=== PATIENT | male | born 1940 | race Caucasian/White ===

== ENCOUNTER 2022-04-07 16:45 | Emergency (ER) | payer MEDICARE, OTHER ==
[2022-04-07] MEDS ORDERED: oxyCODONE 5 MG/5 ML Cup PO ONE (21:09)
[2022-04-07] MEDS ORDERED: Acetaminophen 500 MG Tab PO ONE (21:10)
[2022-04-07] MEDS ORDERED: oxyCODONE 5 MG Tab ONE (21:29)
[2022-04-07] MEDS: oxyCODONE 5 MG Tab PO ONE ×2 (21:32→21:33)
[2022-04-07] MEDS ORDERED: oxyCODONE 5 MG Tab PO STA (21:58)
[2022-04-07] MEDS ORDERED: Ondansetron 4 MG Tab.DIS PO ONE (22:02)
== END 2022-04-07 22:00 | disposition home or self-care (01) ==
LOC: MW.ED 16:45
DX: S72.114A Nondisplaced fracture of greater trochanter of right femur, initial encounter for closed fracture (principal); W00.0XXA Fall on same level due to ice and snow, initial encounter
CPT/HCPCS: 73502; 73700; 99284; A9270; 99283